=== PATIENT | male | born 2000 | race Caucasian/White ===

== ENCOUNTER 2023-05-19 22:21 | Emergency (ER) | payer SELFPAY ==
[2023-05-19] MEDS ORDERED: PROCHLORPERAZINE EDISYLATE 10 MG/2 ML SDV IV ONE (22:30)
[2023-05-19] MEDS ORDERED: KETOROLAC TROMETHAMINE 30 MG/ML SDV IV ONE (22:30)
[2023-05-19] MEDS ORDERED: SODIUM CHLORIDE 0.9% 1,000 ML IV ONE (22:30)
[2023-05-19] MEDS ORDERED: Diph, Acellular Pertussis, Tet 0.5 ML/VIAL (Tdap) SDV IM ONE (22:35)
[2023-05-19 22:43] VITALS: BP 139/85
[2023-05-19 22:45] VITALS: BP 124/71
[2023-05-19 23:18] LABS: BASO% 0.3 % (0-3); EOS% 0.7 % (0-8); HEMATOCRIT 38.4 % (39.0-50.0); HEMOGLOBIN 13.5 g/dl (14.0-18.0); IMMATURE GRANULOCYTES 0.3 % (0.0-5.0); LYMPH% 20.4 % (15-41); MEAN CELL VOLUME 85.7 fL CALC (80.0-100.0); MEAN CORPUSCULAR HGB 30.1 pG CALC (26.0-32.0); MEAN CORPUSCULAR HGB CONC 35.2 g/dL CAL (32.0-36.0); MONO% 7.6 % (2-13); NEUT# 5.11 thou/uL (1.82-7.42); NEUT% 70.7 % (42-76); RED BLOOD COUNT 4.48 mill/uL (4.70-6.10); RED CELL DISTRI WIDTH 11.6 % (11.5-15.5)
[2023-05-19 23:32] LABS: ALBUMIN 4.3 g/dL (3.2-5.0); ALKALINE PHOSPHATASE 80 u/l (38-126); ANION GAP 14 (6-22 (CALC)); BILIRUBIN, TOTAL 0.5 mg/dL (0.2-1.3); BUN 9 mg/dL (9-20); BUN/CREATININE RATIO 9 (12-20 (CALC)); CARBON DIOXIDE 22 mmol/l (22-30); CHLORIDE 104 mmol/l (95-108); ETHYL ALCOHOL 288 mg/dl (0-30); GFR FOR AFR.AMER. > 60 ML/MIN (>=60 (CALC)); GFR OTHER RACES > 60 ML/MIN (>=60 (CALC)); POTASSIUM 3.5 mmol/l (3.5-5.1); SGOT/AST 35 u/l (17-59); SODIUM 137 mmol/l (137-146); TOTAL PROTEIN 6.3 g/dL (6.3-8.2)
[2023-05-20] MEDS ORDERED: LACTATED RINGER'S 1,000 ML IV ONE (00:25)
[2023-05-20 00:46] VITALS: BP 95/46
[2023-05-20 01:00] VITALS: BP 93/47
[2023-05-20 01:15] VITALS: BP 99/49
[2023-05-20 01:21] VITALS: BP 107/56
[2023-05-20 01:30] VITALS: BP 116/57
[2023-05-20 01:45] VITALS: BP 113/54
== END 2023-05-20 03:08 | DRG 159 ==
LOC: ED 22:21
PROVIDERS: Family Medicine
DX: S02.602A Fracture of unspecified part of body of left mandible, initial encounter for closed fracture (principal); S02.601A Fracture of unspecified part of body of right mandible, initial encounter for closed fracture; S00.83XA Contusion of other part of head, initial encounter; S00.81XA Abrasion of other part of head, initial encounter; Y04.0XXA Assault by unarmed brawl or fight, initial encounter; F10.129 Alcohol abuse with intoxication, unspecified; Y90.8 Blood alcohol level of 240 mg/100 ml or more
CPT/HCPCS: J0690